=== PATIENT | male | born 1995 | race Caucasian/White ===

== ENCOUNTER 2017-02-02 23:02 | Inpatient (IN) | payer MEDICAID, OTHER ==
[~2017-02-02] VITALS: Ht 190.5 cm; Wt 68.0 kg
[2017-02-02 23:07] VITALS: BP 156/90
--- NOTE | 2017-02-02 23:07 | NUR ---
PT. AMBULATED TO OF 6
--- NOTE | 2017-02-02 23:15 | NUR ---
KRYSTYNA FLORES CALLED BY MT. JUANCARLOS
--- NOTE | 2017-02-02 23:29 | NUR ---
21Y/M PT. BIBA TO ED WITH C/O NECK PAIN WITH SUICIDAL IDEATION. PT. STATES I WANTED TO KILL MYSELF BY HEROINE OVER DOSE. HX. ASTHMA, NO MED X 1 YR, SCHIZOPRENIA, NEVER ON MED. AAO X4, AMBULALATORY WITH STEADY GAIT. GCS 15, RESPIRATIONS ROOM AIR, EVEN AND UNLABORED. C/O NECK PIN 5/10. VSS, ER MADE AWARE.
--- NOTE | 2017-02-03 00:25 | NUR ---
[place] [facility] AT BEDSIDE.
--- NOTE | 2017-02-03 00:36 | NUR ---
[place] [facility] AT BEDSIDE
--- NOTE | 2017-02-03 01:00 | NUR ---
PLACE PT. ON 5150 HOLD. ALL BELONGING REMOVED.
--- NOTE | 2017-02-03 01:05 | NUR ---
5150 PPWK COMPLETED AND PLACED IN PT CHART.
--- NOTE | 2017-02-03 01:30 | NUR ---
URINE SPECIMEN COLLECTED
[2017-02-03 01:37] LABS: HEMATOCRIT 45.6 % (36-52); HEMOGLOBIN 15.3 g/dL (12.0-18.0); MEAN CORPUSCULAR HEMOGLOBIN 28 pg (27-31); MEAN CORPUSCULAR HGB CONC 33 g/dL (33-37); MEAN CORPUSCULAR VOLUME 85 fL (80-94); PLATELET COUNT (AUTO) 160 K/uL (140-450); RED BLOOD CELL COUNT(AUTO) 5.38 MIL/uL (4.20-6.10); RED CELL DISTRIBUTION WIDTH 12.7 % (11.6-13.7)
[2017-02-03 01:50] LABS: BARBITURATE, URINE NEG. ng/ml (NEG <=200); BENZODIAZEPINE, URINE NEG. ng/mL (NEG <=200); CANNABINOID, URINE NEG. ng/mL (NEG <=50); COCAINE, URINE NEG. ng/mL (NEG <=300); OPIATE, URINE NEG. ng/mL (NEG <=2000); PHENCYCLIDINE SCREEN,URINE NEG. ng/mL (NEG <=25)
[2017-02-03 01:52] LABS: ANION GAP 7.9 (8-16); CARBON DIOXIDE 30.9 mmol/L (21-32); CHLORIDE 105 mmol/L (98-107); GFR ARICAN-AMERICAN 120 mL/min (>90); GLUCOSE 77 mg/dL (74-106); POTASSIUM 3.8 mmol/L (3.5-5.1); SODIUM SERUM 140 mmol/L (136-145); UREA NITROGEN, BLOOD 11 mg/dL (7-18)
--- NOTE | 2017-02-03 02:00 | NUR ---
PATIENT RESTING AT THIS TIME. NO SIGNS OF DISTRESS.
[2017-02-03 02:08] LABS: ACETAMINOPHEN 0.9 ug/ml (10-30); ALBUMIN 3.6 g/dL (3.4-5.0); ASPARTATE AMINOTRANSFERASE 30 U/L (15-37); TOTAL BILIRUBIN 0.3 mg/dL (0.0-1.0)
[2017-02-03 02:13] LABS: SALICYLATE < 2.8 mg/dL (2.8-20.0)
[2017-02-03 02:16] LABS: WHITE BLOOD COUNT (AUTO) 3.6 K/uL (4.8-10.8)
[2017-02-03 02:17] LABS: LYMPHOCYTES % (MANUAL) 66 % (20-46); MONOCYTES % (MANUAL) 11 % (5-12)
[2017-02-03 02:19] LABS: APPEARANCE,URINE CLEAR (CLEAR); BILIRUBIN,URINE NEGATIVE (NEGATIVE); BLOOD, URINE NEGATIVE (NEGATIVE); COLOR,URINE YELLOW (YELLOW); LEUKOCYTE ESTERASE ,URINE NEGATIVE (NEGATIVE); NITRITE, URINE NEGATIVE (NEGATIVE); UGLUCOSE NEGATIVE (NEGATIVE)
[2017-02-03 02:55] LABS: RBC,URINE 0-5 (RARE) /HPF (0-5); WBC,URINE 0-5 (RARE) /HPF (0-5)
--- NOTE | 2017-02-03 03:00 | NUR ---
PATIENT RESTING AT THIS TIME. NO SIGNS OF DISTRESS.
--- NOTE | 2017-02-03 04:00 | NUR ---
PATIENT RESTING AT THIS TIME.
--- NOTE | 2017-02-03 05:00 | NUR ---
PATIENT RESTING AT THIS TIME.
--- NOTE | 2017-02-03 06:00 | NUR ---
PATIENT RESTING AT THIS TIME.
--- NOTE | 2017-02-03 07:00 | NUR ---
PATIENT RESTING AT THIS TIME.
--- NOTE | 2017-02-03 07:25 | NUR ---
PT APPEARS TO BE RESTING COMFORTABLY IN CHAIR; RR EVEN/UNLABORED; BREAKFAST PROVIDED TO PATIENT; ALL POTENTIALLY HARMFUL ITEMS REMOVED FROM PT'S AREA; SITTER AT PT'S SIDE; WILL CONTINUE TO MONITOR.
[2017-02-03] MEDS ORDERED: NACL 0.9% 1,000 ML IV SCH (08:07)
[2017-02-03] MEDS ORDERED: ONDANSETRON 4 MG/2 ML VIAL IVP PRN (08:10)
[2017-02-03] MEDS ORDERED: HYDROcodone/APAP 7.5/325 MG 1 TAB PO PRN (08:10)
[2017-02-03] MEDS ORDERED: ACETAMINOPHEN 325 MG TAB PO PRN (08:10)
--- NOTE | 2017-02-03 08:25 | NUR ---
PT APPEARS TO BE RESTING COMFORTABLY IN CHAIR; RR EVEN/UNLABORED; WILL CONTINUE TO MONITOR.
--- NOTE | 2017-02-03 09:09 | NUR ---
PATIENT HAS BEEN SCREENED AND CATEGORIZED LOW NUTRITION RISK. PATIENT WILL BE SEEN WITHIN 7 DA[address] OF ADMISSION. RADHA SIM[address]ON RD
--- NOTE | 2017-02-03 09:30 | NUR ---
PT APPEARS TO BE RESTING COMFORTABLY IN CHAIR; RR EVEN/UNLABORED; WILL CONTINUE TO MONITOR.
--- NOTE | 2017-02-03 10:13 | NUR ---
DR. OLIVARES TO SEE PT IN ED.
[2017-02-03 10:18] LABS: PROTHROMBIN TIME 10.4 secs (10.8-13.4)
[2017-02-03 10:20] LABS: CHOL/HDL RATIO 3.3 (1-4.5); FREE T4 (FREE THYROXINE) 1.01 ng/dL (0.76-1.46); THYROID STIMULATING HORMONE 0.68 uIU/mL (0.34-3.74)
--- NOTE | 2017-02-03 10:20 | NUR ---
Patient will be admitted to care of DR. PUGA. Admited to TELEMETRY. Will go to room 109B. Belongings list completed. Report to EVERARDO TOLENTINO.
[2017-02-03 10:54] VITALS: BP 130/82
--- NOTE | 2017-02-03 11:20 | NUR ---
RECEIVED REPORT FROM EVERARDO TOLENTINO AT PT BEDSIDE. PATIENT RESTING IN BED, EASILY AWAKENS, DROWSY. ALERT AND ORIENTED. ADMITTED DX SUICIDAL IDEATION. PATIENT STATES CURRENT PLANS OF SUICIDE TO RUN IN MIDDLE OF TRAFFIC. PATIENT DENIES DRUG USE. HX PACK A DAY SMOKER, ALCOHOL CONSUMPTION, DENIES VERBALIZING LAST INTAKE. PATIENT HAS 5150 NOTE FROM [place] [employer]. PATIENT HAS HX BIPOLAR SCHIZOPHRENIA PTSD. DENIES PAIN. AMBULATORY. SITTER AT BEDSIDE. IV SITE PATENT AND INTACT. CALL LIGHT WITHIN REACH. SEIZURE PRECAUTION IN PLACE. ENVIRONMENTAL SAFETY CHECK PERFORMED. SITTER AT BEDSIDE.
[2017-02-03] MEDS ORDERED: LACTULOSE 20 GM/30 ML UDC PO SCH (12:49)
[2017-02-03] MEDS ORDERED: QUEtiapine FUMARATE 100 MG TAB PO SCH (12:51)
[2017-02-03] MEDS ORDERED: LORazepam 1 MG TAB PO SCH (13:00)
--- NOTE | 2017-02-03 13:00 | NUR ---
Patient refused echo Addendum: 02/03/17 at 1412 by Kenton Syed RT Notified resident doctor and nurse
[2017-02-03] MEDS: DOCUSATE SODIUM 100 MG GELCAP PO SCH ×2 (13:18→20:42)
--- NOTE | 2017-02-03 13:38 | NUR ---
PATIENT TOLERATED PO MEDS. REFUSED LACTULOSE, DR. TURPIN MADE AWARE. NO NEW ORDERS. PATIENT REFUSED TELE MONITORING.
[2017-02-03] MEDS ORDERED: INFLUENZA VIRUS VACCINE QUAD 0.5 ML SYR IMVAC SCH (15:10)
[2017-02-03 16:00] VITALS: BP 135/58
--- NOTE | 2017-02-03 16:50 | NUR ---
PATIENT SLEEPING, LETHARGIC. NO S/S OF ACUTE DISTRESS NOTED. SITTER AT BEDSIDE.
--- NOTE | 2017-02-03 19:34 | NUR ---
SBAR REPORT GIVEN TO EVERARDO REYES AT PT BEDSIDE. NO S/S OF ACUTE DISTRESS NOTED.
--- NOTE | 2017-02-03 19:40 | NUR ---
RECEIVED REPORT FROM AM NURSE. PT RESTING IN BED, AOX4, AMBULATORY, ABLE TO VERBALIZE NEEDS. PT REPORTS VAGUE SUICIDAL IDEATION WITH PLAN OF RUNNING INTO TRAFFIC. PT IS AGITATED AT THIS TIME, REFUSING TO KEEP IV ACCESS DESPITE EDUCATION, STATING "I WANT THIS IV OFF, I'VE BEEN WANTING TO TAKE IT OFF THE WHOLE DAY, I'LL TAKE IT OFF MYSELF." MADE PT AWARE THAT HE NEEDS IV ACCESS FOR MAINTENANCE FLUIDS AND IV MEDICATIONS, PT STATED "I DON'T CARE, I'LL TAKE THE PILL FORM." CALLED DR VAIL, MADE MD AWARE, MD STATED THAT IT IS OK FOR PT NOT TO HAVE IV ACCESS. IV ACCESS REMOVED, IV CANNULA INTACT, PT TOLERATED WELL. DISCUSSED AND REVIEWED PLAN OF CARE WITH PT. PT STATED "OK." ALL NEEDS MET. ENVIRONMENT CHECKED AND CLEARED, 1:1 SITTER WITH CLOSE MONITORING AT BEDSIDE. SAFETY MEASURES AND PRECAUTIONS ENSURED. WILL CONTINUE TO MONITOR.
--- NOTE | 2017-02-03 19:41 | NUR ---
PT REFUSED CT HEAD DESPITE EDUCATION, STATING "I DON'T WANT IT IF I HAVE TO GO OUT OF THIS ROOM." WILL ENDORSE TO TRY AGAIN TOMORROW.
[2017-02-03 20:00] VITALS: BP 116/67
[2017-02-03] MEDS: LACTULOSE 20 GM/30 ML UDC PO SCH (20:42)
--- NOTE | 2017-02-03 20:43 | NUR ---
PT REFUSED LACTULOSE PO AND COLACE PO DESPITE EDUCATION, STATING "NO" AND HIDING BEHIND BEDCOVERS. ALL NEEDS MET. 1:1 SITTER AND SAFETY MEASURES ENSURED. WILL CONTINUE TO MONITOR.
--- NOTE | 2017-02-03 23:50 | NUR ---
PT SLEEPING COMFORTABLY, NO S/S OF ACUTE DISTRESS. ALL NEEDS MET. 1:1 SITTER AT BEDSIDE WITH CLOSE MONITORING. SAFETY MEASURES AND PRECAUTIONS ENSURED. WILL CONTINUE TO MONITOR.
[2017-02-04] VITALS: BP 113/58
--- NOTE | 2017-02-04 07:20 | NUR ---
ENDORSED PLAN OF CARE TO AM NURSE. CONDITION STABLE.
--- NOTE | 2017-02-04 07:30 | NUR ---
RECEIVED REPORT FROM EXTENSION SERVICE SUPERVISOR NURSE, PT IS SLEEPING IN BED BUT EASILY AWAKEN, PT IS A/OX4, AMBULATORY, PT HAS NO IV ACCESS, PT REFUSED NEW IV, SKIN IS INTACT, NO S/S OF RESPIRATORY DISTRESS OR DISCOMFORT NOTED, DISCUSSED PLAN OF CARE WITH PT, PT REMAINED QUIET, SAFETY/FALL/SUICIDE PRECAUTIONS ARE IN PLACE, 1:1 SITTER IS AT BEDSIDE, WILL CONTINUE TO MONITOR
[2017-02-04 08:00] VITALS: BP 112/56
[2017-02-04] MEDS: DOCUSATE SODIUM 100 MG GELCAP PO SCH ×2 (09:00→20:29)
[2017-02-04] MEDS: LACTULOSE 20 GM/30 ML UDC PO SCH ×2 (09:00→20:29)
[2017-02-04] MEDS: QUEtiapine FUMARATE 100 MG TAB PO SCH (09:09)
[2017-02-04] MEDS: FLUoxetine 20 MG CAP PO SCH (09:09)
[2017-02-04] MEDS: MULTIVITAMIN 1 TAB PO SCH (09:10)
--- NOTE | 2017-02-04 09:30 | NUR ---
PATIENT RIPPED OFF RED ALLERGY BAND, PT STATED "I DON'T NEED THIS."
--- NOTE | 2017-02-04 11:29 | NUR ---
PT SLEEPING IN BED AT THIS TIME.
--- NOTE | 2017-02-04 11:35 | NUR ---
PT REFUSED BLOOD DRAW FROM LAB AT THIS TIME.
[2017-02-04] MEDS ORDERED: LORazepam 1 MG TAB PO PRN (13:00)
--- NOTE | 2017-02-04 14:25 | NUR ---
PT IS SLEEPING IN BED AT THIS TIME, 1:1 SITTER IS AT BEDSIDE.
[2017-02-04 16:00] VITALS: BP 110/57
--- NOTE | 2017-02-04 17:30 | NUR ---
PT IS SLEEPING IN BED, 1:1 SITTER IS AT BEDSIDE.
--- NOTE | 2017-02-04 19:15 | NUR ---
ENDORSED PT TO GLASS UNLOADING EQUIPMENT TENDER NURSE FOR CONTINUITY OF CARE, PT STABLE AT THIS TIME.
--- NOTE | 2017-02-04 19:16 | NUR ---
PATIENT IS CURRENTLY RESTING IN BED SLEEPING NEEDS MET WILL CONTINUE TO MONITOR.
--- NOTE | 2017-02-04 20:00 | NUR ---
Patient's Plan of Care was discussed and reviewed with HEALTH WORKERS: SO JEAN BAPTISTE
--- NOTE | 2017-02-04 20:30 | NUR ---
PATIENT REFUSED HIS PILLS PATIENT STATES," THE ONLY MEDS I WILL TAKE IS THE SEROQUEL ONLY." PATIENT QUIET AT THIS TIME AND RESTING IN BED MONITORED BY MAURA LOPES.
--- NOTE | 2017-02-04 23:28 | NUR ---
PATIENT SLEEPING NO DISTRESS.NO ATTEMPT TO HARM HIMSELF OR STAFF NOT VOICING ANY SUICIDAL THOUGHTS AND NO HALLUCINATIONS REPORTED BY THE PATIENT.CONTINUE TO BE MONITORED BY MAURA SAMUEL.
--- NOTE | 2017-02-05 03:37 | NUR ---
PATIENT IS CURRENTLY RESTING IN BED NO SUICIDAL THOUGHTS OR ATTEMPTS NO HALLUCINATIONS NOTED.
--- NOTE | 2017-02-05 04:35 | NUR ---
PATIENT CONTINUES TO BE ASLEEP IN BED NO SUICIDAL IDEATION OR THOUGHTS.NO HALLUCINATIONS REPORTED.PATIENT NEEDS MET WILL CONTINUE TO MONITOR.TRENTON SAMUEL 1:1 AT BEDSIDE.WILL CONTINUE TO MONITOR.
[2017-02-05 06:35] VITALS: BP 119/58
--- NOTE | 2017-02-05 06:35 | NUR ---
PATIENT STABLE SLEEPING IN BED LET ME CHECK HIS VITAL SIGNS NO PAIN OR DISCOMFORT NOTED JUST WANTS TO BE LEFT ALONE AT THIS TIME AND WANTS HIS LIGHTS OFF.
--- NOTE | 2017-02-05 07:20 | NUR ---
RECEIVED REPORT FROM MONITOR AND STORAGE BIN TENDER RN. PATIENT RESTING IN BED, EASILY AWAKENS, ORIENTEDX4. PT STILL HAVE SUICIDAL IDEATION. PATIENT STATES CURRENT PLAN OF SUICIDE TO BE KILL BY A CAR. PATIENT HAS 5150 HOLD. DENIES PAIN. ON 1:1 SITTER. NO IV ACCESS, PT REFUSES TO HAVE IV INSERTION. SEIZURE PRECAUTION IN PLACE. ENVIRONMENTAL SAFETY CHECK PERFORMED. SITTER AT BEDSIDE.
--- NOTE | 2017-02-05 07:27 | NUR ---
PATIENT STABLE SLEEPING ENDORSED AT BEDSIDE TO EVERARDO FELIZ.
[2017-02-05 08:00] VITALS: BP 129/89
--- NOTE | 2017-02-05 08:16 | NUR ---
LATE ENTRY FOR 02/04/17 SPOKE WITH [facility] CALL UNIT PER ART THEY ARE STILL LOOKING FOR PLACEMENT. 1530 CALL PLACED TO [facility] AND PER RADHA PT HAS BEEN AT THEIR FACILITY IN THE PAST AND AT THIS TIME PT IS NOT ELIGIBLE FOR RETURN DUE TO "CLINICAL ISSUES".
[2017-02-05] MEDS: DOCUSATE SODIUM 100 MG GELCAP PO SCH (09:00)
[2017-02-05] MEDS: FLUoxetine 20 MG CAP PO SCH (09:00)
[2017-02-05] MEDS: LACTULOSE 20 GM/30 ML UDC PO SCH (09:00)
[2017-02-05] MEDS: QUEtiapine FUMARATE 100 MG TAB PO SCH (09:26)
[2017-02-05] MEDS: MULTIVITAMIN 1 TAB PO SCH (09:27)
--- NOTE | 2017-02-05 12:43 | NUR ---
CM NOTE PER ART OF [facility] # [phone], [facility] IN [place] HAS NO BEDS AVAILABLE AND THEY HAVE ALSO SENT INQUIRY TO [facility], [facility], [facility] AMONG OTHERS. PER ART, [facility] DECLINED BECAUSE PATIENT HAS BEEN THERE BEFORE AND CAUSED PROBLEMS. I GAVE ART THE NUMBER TO THE NURSING FLOOR WHERE PATIENT IS IN CASE THERE WILL BE AN ACCEPTING PSYCH FACILITY AND BED AVAILABILITY AT A LATER TIME.
--- NOTE | 2017-02-05 14:30 | NUR ---
PT C/O NECK PAIN ON LEFT SIDE. NO SWELLING NOTED. PT C/O OF PAIN TO TOUCHING. SKIN IS INTACT. NO REDNESS.
--- NOTE | 2017-02-05 14:55 | NUR ---
PT C/O OF NECK PAIN ON THE LEFT SIDE. REPORTED TO THE DR. TURPIN. DR STATED PT JUST HAVE SORE NECK FROM SLEEPING IN BED FOR TOO LONG.
--- NOTE | 2017-02-05 14:59 | NUR ---
RECEIVED CALL FROM MANDEEP FROM [facility] AND SHE REQUESTED INFORMATION BE FAXED TO [phone] AND PHONE [phone]
--- NOTE | 2017-02-05 16:00 | NUR ---
PT WANTS TO SLEEP, REFUSED VITALS TAKEN AT THIS TIME.
[2017-02-05] MEDS ORDERED: ACET-1182 PO (16:05)
[2017-02-05] MEDS ORDERED: QUET100T44 PO (16:05)
[2017-02-05] MEDS ORDERED: LACT10SO11 PO (16:05)
[2017-02-05] MEDS ORDERED: DOCU-299 PO (16:05)
[2017-02-05] MEDS ORDERED: FLU60SYR IMVAC (16:05)
[2017-02-05] MEDS ORDERED: FLUO-348 PO (16:05)
[2017-02-05] MEDS ORDERED: MULT-405 PO (16:05)
[2017-02-05] MEDS ORDERED: LORA-476 PO (16:05)
--- NOTE | 2017-02-05 16:40 | NUR ---
REFAXED CHEST X RAY TO [facility]. CONFIRMATION PAGE IN CHART.
--- NOTE | 2017-02-05 18:00 | NUR ---
REPORT GIVEN TO NURSE AT [facility].
--- NOTE | 2017-02-05 18:09 | NUR ---
VITAL SIGNS TAKEN, WITHIN NORMAL LIMIT. DOCUMENTED UNDER THE INTERVENTIONS.
--- NOTE | 2017-02-05 18:12 | NUR ---
SPOKE TO CAMI FROM [facility] COVERING MACHINE OPERATOR TIME WILL BE IN AN HOUR.
[2017-02-05 18:16] VITALS: BP 108/63
--- NOTE | 2017-02-05 18:40 | NUR ---
FLU VACCINE NOT GIVEN DUE TO PT ALLERGIC TO EGG.
--- NOTE | 2017-02-05 19:20 | NUR ---
PT DISCHARGED PER MD ORDER. PT IS TO BE TRANSFERRED TO [facility]. [facility]ERSONNELS HAVE PICKED UP THE PT. PT SIGNED ALL DISCHARGE PAPERWORK AND VERBALIZED UNDERSTANDING. PT IS IN STABLE CONDITION. NO S/S OF DISTRESS. PT HAVE LEFT WITH ALL HIS BELONGINGS.
== END 2017-02-05 19:20 | disposition designated cancer center or children's hospital (05) | DRG 917 ==
LOC: MED 23:02 → MTU 02-03 07:50
PROVIDERS: ADMIT Family Medicine Sports Medicine; ATTEND Family Medicine Sports Medicine
DX: T43.624A Poisoning by amphetamines, undetermined, initial encounter (principal); G92 Toxic encephalopathy; N17.0 Acute kidney failure with tubular necrosis; R45.851 Suicidal ideations; F31.5 Bipolar disorder, current episode depressed, severe, with psychotic features; F43.10 Post-traumatic stress disorder, unspecified; F15.10 Other stimulant abuse, uncomplicated; F10.20 Alcohol dependence, uncomplicated; F17.210 Nicotine dependence, cigarettes, uncomplicated; Z59.0 Homelessness; Z91.012 Allergy to eggs; Z88.0 Allergy status to penicillin; Z91.018 Allergy to other foods; Z91.14 Patient's other noncompliance with medication regimen; Y90.9 Presence of alcohol in blood, level not specified; Y92.89 Other specified places as the place of occurrence of the external cause
CPT/HCPCS: 36415; 71010; 80053; 80305; 81001; 82140; 82150; 82550; 83036; 83605; 83690; 83735; 83880; 84100; 84439; 84443; 84484; 85025; 85610; 85730; 87081; 93005; 99285; G0480; G0482; J7030; Q0092

== ENCOUNTER 2019-12-23 22:12 | Emergency (ER) | payer OTHER ==
[~2019-12-23] VITALS: Ht 190.5 cm; Wt 81.6 kg
[2019-12-23 22:12] VITALS: BP 133/80
[~2019-12-23 22:12] MED LIST: ACET-1182 PO; DOCU-299 PO; FLU60SYR IMVAC; FLUO20CA33 PO; LACT10SO11 PO; LORA-476 PO; MULT-405 PO; QUET100T44 PO
[2019-12-23] MEDS ORDERED: LORazepam 1 MG TAB PO ONE (22:20)
[2019-12-23] MEDS ORDERED: KETOROLAC 30 MG/ML VIAL IM ONE (22:20)
[2019-12-23] MEDS ORDERED: risperiDONE 1 MG TAB PO STA (23:02)
[2019-12-23] MEDS ORDERED: levETIRAcetam 500 MG TAB PO ONE (23:05)
[2019-12-23 23:39] LABS: APPEARANCE,URINE HAZY (CLEAR); BILIRUBIN,URINE NEGATIVE (NEGATIVE); BLOOD, URINE NEGATIVE (NEGATIVE); COLOR,URINE YELLOW (YELLOW); LEUKOCYTE ESTERASE ,URINE NEGATIVE (NEGATIVE); NITRITE, URINE NEGATIVE (NEGATIVE); PH,URINE 7.5 (5.0-9.0); UGLUCOSE NEGATIVE (NEGATIVE)
[2019-12-23 23:48] LABS: BASOPHILS % (AUTO) 0.8 % (0.0-2.0); EOSINOPHILS % (AUTO) 1.1 % (0.0-4.0); HEMOGLOBIN 14.9 g/dL (12.0-18.0); LYMPHOCYTES # (AUTO) 1.8 K/uL (2.0-11.5); LYMPHOCYTES % (AUTO) 38.9 % (20.5-51.1); MEAN CORPUSCULAR HEMOGLOBIN 31 pg (27-31); MEAN CORPUSCULAR HGB CONC 35 g/dL (33-37); MEAN CORPUSCULAR VOLUME 89.2 fL (80-94); MONOCYTES # (AUTO) 0.5 K/uL (0.8-1.0); MONOCYTES % (AUTO) 10.6 % (1.7-9.3); NEUTROPHILS # (AUTO) 2.3 K/uL (1.8-7.7); NEUTROPHILS % (AUTO) 48.6 % (42.2-75.2); PLATELET COUNT (AUTO) 229 K/uL (140-450); RED BLOOD CELL COUNT(AUTO) 4.82 MIL/uL (4.20-6.10); RED CELL DISTRIBUTION WIDTH 13.7 % (11.6-13.7); WHITE BLOOD COUNT (AUTO) 4.6 K/uL (4.8-10.8)
[2019-12-23 23:50] LABS: BARBITURATE, URINE NEGATIVE ng/ml (NEG <=200); BENZODIAZEPINE, URINE NEGATIVE ng/mL (NEG <=200); CANNABINOID, URINE NEGATIVE ng/mL (NEG <=50); COCAINE, URINE NEGATIVE ng/mL (NEG <=300); OPIATE, URINE NEGATIVE ng/mL (NEG <=2000); PHENCYCLIDINE SCREEN,URINE NEGATIVE ng/mL (NEG <=25)
[2019-12-23 23:53] LABS: ALBUMIN 4.1 g/dL (3.4-5.0); ANION GAP 14.7 (8-16); ASPARTATE AMINOTRANSFERASE 24 U/L (15-37); CARBON DIOXIDE 27.3 mmol/L (21-32); CHLORIDE 106 mmol/L (98-107); CREATININE 1.1 mg/dL (0.6-1.3); GFR ARICAN-AMERICAN 105 mL/min (>90); GLUCOSE 103 mg/dL (74-106); SODIUM SERUM 144 mmol/L (136-145); TOTAL BILIRUBIN 0.4 mg/dL (0.0-1.0); UREA NITROGEN, BLOOD 13 mg/dL (7-18)
[2019-12-23 23:54] LABS: RBC,URINE NONE SEEN /HPF (0-5); WBC,URINE 0-5 /HPF (0-5)
[2019-12-23 23:57] LABS: ACETAMINOPHEN < 0.5 ug/ml (10-30); SALICYLATE < 2.8 mg/dL (2.8-20.0)
[2019-12-24 05:55] VITALS: BP 106/60
== END 2019-12-24 05:39 | disposition home or self-care (01) ==
LOC: MED 22:12
DX: F31.9 Bipolar disorder, unspecified (principal); F15.10 Other stimulant abuse, uncomplicated; J45.909 Unspecified asthma, uncomplicated; F20.9 Schizophrenia, unspecified; Z76.0 Encounter for issue of repeat prescription; Z98.890 Other specified postprocedural states; Z79.899 Other long term (current) drug therapy; Z88.0 Allergy status to penicillin; Z91.012 Allergy to eggs; Z91.018 Allergy to other foods
CPT/HCPCS: 36415; 80053; 80305; 81001; 85025; 87086; 99285; G0480; G0482; J1885

== ENCOUNTER 2020-02-07 20:20 | Emergency (ER) | payer SELFPAY ==
[~2020-02-07] VITALS: Ht 190.5 cm; Wt 81.6 kg
[2020-02-07 20:20] VITALS: BP 135/95
--- NOTE | 2020-02-07 20:20 | NUR ---
Pt BIBA taken to ER Bed 12
[2020-02-07 20:23] VITALS: BP 135/95
--- NOTE | 2020-02-07 20:23 | NUR ---
PT 24 YO M BIBA AFTER FALL FROM 1ST STEP, UNSURE IF HE HIT HIS HEAD. PT STATED HE HAD A SEIZURE, UNWITNESSED. PT DENIED VISUAL CHANGES, NO HEADACHE, OR PAIN. LAST SEIZURE WAS 3DAYS AGO PER PT. BS 91. HAND MORTGAGE SERVICING SPECIALIST STRONG BILAT. PERRLA. PT IS SITTING UP IN BED EATING HALLOWEEN CANDY IN STABLE CONDITION. SEIZURE PADS IN PLACE. HX: SEIZURES AND ASTHMA RX: KEPPRA 1000MG (HAS BEEN OFF MEDS FOR 4DAYS PER PT) ALLERG: PCN
[2020-02-07] MEDS: levETIRAcetam 500 MG TAB PO ONE (20:38)
[2020-02-07] MEDS: LORazepam 1 MG TAB PO ONE (20:39)
--- NOTE | 2020-02-07 20:55 | NUR ---
PT AMBULATED TO WITH STEADY GAIT.
--- NOTE | 2020-02-07 21:10 | NUR ---
PT INFORMED THAT HE WOULD NOT BE ALLOWED BACK INTO FACILITY IF HE LEFT. PT LEFT FACILITY TO SMOKE CIGARETTE.
--- NOTE | 2020-02-07 21:45 | NUR ---
PT PROVIDED WITH DISCHARGE INSTRUCTIONS AND RX OF KEPPRA. ALL MEDICATION ADMINISTRATION AND SIDE EFFECTS EXPLAINED. PT VERBALIZED UNDERSTANDING.
== END 2020-02-07 21:45 | disposition home or self-care (01) ==
LOC: MED 20:20
DX: R56.9 Unspecified convulsions (principal); J45.909 Unspecified asthma, uncomplicated; F20.9 Schizophrenia, unspecified; F32.9 Major depressive disorder, single episode, unspecified; Z98.890 Other specified postprocedural states; Z79.899 Other long term (current) drug therapy; Z88.0 Allergy status to penicillin; Z91.012 Allergy to eggs; Z91.018 Allergy to other foods
CPT/HCPCS: 99283

== ENCOUNTER 2020-02-09 17:10 | Emergency (ER) | payer SELFPAY ==
[~2020-02-09] VITALS: Ht 190.5 cm; Wt 81.6 kg
--- NOTE | 2020-02-09 18:56 | NUR ---
Patient transferred to bed 1. RN evaluating patient at bedside.
--- NOTE | 2020-02-09 18:56 | NUR ---
PT PLACED IN BED 1.
--- NOTE | 2020-02-09 18:59 | NUR ---
PT DENIES SI AND HI STATES DOES NOT KNOW WHY HE IS HERE. vOICES NO COMPLAINTS
--- NOTE | 2020-02-09 19:07 | NUR ---
Telepsychiatry consultation order as requested by Dr. Saldana.
--- NOTE | 2020-02-09 19:30 | NUR ---
RECEIVED REPORT FROM IBRAHIMA MCGEE FOR CONTINUITY OF CARE.
--- NOTE | 2020-02-09 19:52 | NUR ---
PT WAS EVALAUTED BY PSYCHIATRIST AND PER PSYCHIATRIST PT DOES NOT FIT THE CRITIRIA PER HOLD AND WILL REMOVE HOLD. PSYCHIATRIST SPOKE WITH ER MD DR. NIEVES AND CORRELATED WITH . PT CONTINUES TO DENY HAVING ANY SUICIDAL OR HOMICIDAL IDEATIONS. HE ALSO DENIES HAVING ANY THOUGHTS OF HARMING OTHERS. WILL CONTINUE TO MONITOR AND 1:1 STAFF PRESENT AT ARMS LENGTH FOR SAFETY.
--- NOTE | 2020-02-09 20:00 | NUR ---
CALLED SECURITY FOR PATIENTS BELONGINGS PT PENDING D/C AT THIS TIME.
[2020-02-09 20:10] VITALS: BP 138/88
--- NOTE | 2020-02-09 20:10 | NUR ---
Patient discharged with v/s stable. Written and verbal after care instructions given and explained. Patient verbalized understanding. Ambulatory with steady gait. All questions addressed prior to discharge. Advised to follow up with PMD. Pt continued to deny having any SI/HI or thoughts of harming others.
== END 2020-02-09 20:10 | disposition home or self-care (01) ==
LOC: MED 17:10
DX: R45.851 Suicidal ideations (principal); F31.9 Bipolar disorder, unspecified; J45.909 Unspecified asthma, uncomplicated; Z88.0 Allergy status to penicillin; Z91.018 Allergy to other foods; Z79.899 Other long term (current) drug therapy; Z91.012 Allergy to eggs
CPT/HCPCS: 99285

== ENCOUNTER 2020-11-14 16:32 | Emergency (ER) | payer SELFPAY ==
[~2020-11-14] VITALS: Ht 188 cm; Wt 86.2 kg
[2020-11-14 16:34] VITALS: BP 126/68
--- NOTE | 2020-11-14 16:35 | NUR ---
BIBA BLS TO ER BED 11
--- NOTE | 2020-11-14 16:41 | NUR ---
25 Y/O MALE BIBA FROM [facility] C/O SOB X3HRS. PT STATES HE RECEIVED COVID VACCINE EZEQUIEL & EZEQUIEL 11/13/20. PT STATES HE HAS BEEN COVID + 2 TIMES IN THE PAST. DENIES N/V, DENIES FEVER/CHILLS. ON ARRIVAL PT 100% ON RA. PLACED ON ASSISTANT STATISTICIAN. LUNGS ARE CLEAR THROUGHOUT TO AUSCULTATION. PMH: EPILEPSY RX: KEPPRA 1000MG PO BID ALLERGIESl: PCN, LATEX, PORK, EGG
[2020-11-14] MEDS ORDERED: KETOROLAC 30 MG/ML VIAL IM ONE (17:20)
[2020-11-14] MEDS ORDERED: ONDANSETRON 4 MG ODT PO ONE (17:20)
--- NOTE | 2020-11-14 17:31 | NUR ---
TALEND DEVELOPER AT PT BEDSIDE.
--- NOTE | 2020-11-14 17:32 | NUR ---
pt refused chest xray
[2020-11-14 17:43] VITALS: BP 132/74
--- NOTE | 2020-11-14 17:44 | NUR ---
Patient discharged with v/s stable. Written and verbal after care instructions given and explained. Patient verbalized understanding. Ambulatory with steady gait. All questions addressed prior to discharge. Advised to follow up with PMD.
== END 2020-11-14 17:44 | disposition home or self-care (01) ==
LOC: MED 16:32
DX: R06.02 Shortness of breath (principal); M79.10 Myalgia, unspecified site; Z88.0 Allergy status to penicillin; Z91.018 Allergy to other foods
CPT/HCPCS: 96372; 99283; J1885; Q0162

== ENCOUNTER 2021-10-15 01:35 | Emergency (ER) | payer OTHER ==
[~2021-10-15] VITALS: Ht 182.9 cm; Wt 81.6 kg
[2021-10-15 01:35] VITALS: BP 134/90
[~2021-10-15 01:35] MED LIST changes: +FLUO-402 PO; -FLUO20CA33 PO
--- NOTE | 2021-10-15 01:35 | NUR ---
PT TO BED AT 0131
[2021-10-15] MEDS ORDERED: LORazepam 1 MG TAB PO ONE (01:45)
[2021-10-15 02:06] LABS: ANION GAP 14.2 (8-16); CARBON DIOXIDE 25.8 mmol/L (21-32); CREATININE 1.3 mg/dL (0.6-1.3)
--- NOTE | 2021-10-15 02:51 | NUR ---
26YR OLD MALE BIB EMS C/O SZ. EMS FOUND PT POSTICTAL AT [facility]. PT HAS HX OF SZ. HASNT TAKEN HIS MEDS. PT IS ON THE BEDSIDE FINANCIAL PROFESSIONAL. SZ PADS ON SIDE RAILS OF BED. HOB ELEVATED. PT WAS ADMITED TO [facility] FOR SZ DISORDER 3 DAYS AGO; MAGALI SZ
[2021-10-15] MEDS ORDERED: POTASSIUM CHLORIDE 10 MEQ TABER PO ONE (03:00)
[2021-10-15 04:18] VITALS: BP 127/73
--- NOTE | 2021-10-15 04:18 | NUR ---
Chart checked and completed.
== END 2021-10-15 04:18 | disposition home or self-care (01) ==
LOC: MED 01:35
DX: R56.9 Unspecified convulsions (principal); R53.1 Weakness; F12.90 Cannabis use, unspecified, uncomplicated; Z88.0 Allergy status to penicillin; Z91.012 Allergy to eggs; Z91.014 Allergy to mammalian meats; Z79.899 Other long term (current) drug therapy; Z98.890 Other specified postprocedural states
CPT/HCPCS: 36415; 80048; 99283

== ENCOUNTER 2021-11-13 16:28 | Emergency (ER) | payer OTHER ==
[~2021-11-13] VITALS: Ht 188 cm; Wt 68.0 kg
--- NOTE | 2021-11-13 16:36 | NUR ---
BIBA BLS TO ER BED 6
--- NOTE | 2021-11-13 16:42 | NUR ---
PT WITH [facility] PLANS INTELLIGENCE OFFICER. ATTEMPTED TO TAKEN BELONGINGS FOR PT SAFETY. PT REFUSED, BECAME AGGRESSIVE. SECURITY CALLED. PT WALKED OUT OF ER.
--- NOTE | 2021-11-13 16:43 | NUR ---
CALLED [facility] FLORES AND NOTIFIED PD THAT PT ELOPED WITH SUICIDE IDEATION.
--- NOTE | 2021-11-13 17:16 | NUR ---
[facility] [facility] ARRIVED TO ED. EXPLAINED SITUATION, PD LEFT TO GO LOOK FOR PT.
--- NOTE | 2021-11-13 18:41 | NUR ---
KRY[facility]YNA FLORES ATTEMPTED TO FIND PT, NOT FOUND. OFFICER INDIO STATED TO CALL PD IF NEEDED.
== END 2021-11-13 16:43 | disposition left against medical advice (07) ==
LOC: MED 16:28
DX: R45.851 Suicidal ideations (principal); Z53.21 Procedure and treatment not carried out due to patient leaving prior to being seen by health care provider

== ENCOUNTER 2022-07-24 21:23 | Emergency (ER) | payer OTHER ==
[~2022-07-24] VITALS: Ht 188 cm; Wt 81.6 kg
[2022-07-24 21:23] VITALS: BP 125/88
--- NOTE | 2022-07-24 21:27 | NUR ---
PT. KAEL MORAN. PLACED IN BED 07.
--- NOTE | 2022-07-24 21:58 | NUR ---
27YR OLD MALE BIB EMS C/O CP S/P COCAINE USE . PT STATES HES BEEN SOBER FOR 6YRS RELASPED TODAY WHILE AT WORK. CP 7/10 PRESSURE LIKE NONRADIATING. +SOB SP02 100% RA. PT IS A&OX4. PT IS ON BEDSIDE ARTS EDUCATION TEACHER ST AT 104HR. PCN LATEX SZ PAST DRUG USE
--- NOTE | 2022-07-24 22:09 | NUR ---
PT STATED HE WANTS TO BE TRANSFERED TO [facility]. EXPLAINED TO PT HOW TRANSFER VIA EMS WORKS. ER MD TO SEE PT
[2022-07-24] MEDS ORDERED: ALBU0.0912 IH (22:34)
[2022-07-24] MEDS ORDERED: LEVE1000 PO (22:34)
--- NOTE | 2022-07-24 22:37 | NUR ---
X-Ray at bedside.
[2022-07-24 23:02] VITALS: BP 128/81
== END 2022-07-24 23:02 | disposition home or self-care (01) ==
LOC: MED 21:23
DX: R07.9 Chest pain, unspecified (principal); F14.10 Cocaine abuse, uncomplicated; Z88.0 Allergy status to penicillin; Z91.012 Allergy to eggs; Z79.899 Other long term (current) drug therapy; Z76.0 Encounter for issue of repeat prescription; Z91.041 Radiographic dye allergy status
CPT/HCPCS: 71045; 93005; 99283; Q0092